=== PATIENT | female | born 1965 | race Caucasian/White ===

== ENCOUNTER 2025-05-12 00:21 | Day surgery (SDC) | payer OTHER, SELFPAY ==
[2025-04-22 13:12] VITALS: BMI 38.5
--- OUTSIDE RECORDS SUMMARY | 2025-05-12 00:26 | XMS_ITS | Clinical Summary ---
Author Organization [facility] Ref[facility] Address [address] [place] [address] Care Team Providers Care Greens Tier Name Role Phone Chio uBtler DO Primary Care Provider [phone] Source Comments [facility],non-owned Affiliates and Associated Physician Practices is amultiple site organization consisting of ambulatory clinics and hospital sitesin [place], [place], [place] and [place]. This disclosure is being madepursuant to the Care Everywhere program and may not contain all information available regarding this patient. Last updated 18.[facility] Allergies Active Allergy Reactions Criticality Noted Date Comments Codeine Other,Shortness of Breath High 09/06/2012 Did not feel well Hydrocodone-Acetamin ophen Shortness of Breath High 06/25/2012 panicky Medications * Be aware that medications may not be up to date on this document. Alwaysverify current medications with the patient. difluprednate (DUREZOL) 0.05 % ophthalmic suspension Instill 1 drop into both eyes DAILY. 3 bottles 4 7 Active Additional Information Patient not taking.Reported on 10/26/2018 telmisartan-hyd roCHLOROthiazid e (MICARDIS HCT) 80-25 MG 6 Active BuPROPion HCl (WELLBUTRIN SR PO) Active omeprazole (PRILOSEC) 40 MG capsule Take 1 capsule by mouth once daily 0 Active Multiple Vitamin (MULTIVITAMIN ADULT PO) Take 1 tablet by mouth once daily Active dicyclomine (BENTYL) 10 MG capsule TAKE ONE CAPSULE BY MOUTH FOUR TIMES DAILY BEFORE MEALS AND EVERY NIGHT 1 Active oxyCODONE-aceta minophen (PERCOCET) 5-325 MG tablet TK 1-2 TS PO Q 6 H PRN 0 Active buPROPion XL 24hr (WELLBUTRIN-XL) 150 MG tablet 0 Active MICARDIS HCT 40-12.5 MG tablet 0 Active oxyCODONE-aceta minophen (ROXICET) 5-325 MG/5ML solution 0 Active BUPROPION HCL PO 0 Active cyclobenzaprine (FLEXERIL) 10 MG tablet 9 Active dicyclomine (BENTYL) 10 MG capsule 1 Active HYDROcodone-dennis taminophen (NORCO) 5-325 mg 5-325 mg half tablet 9 Active ibuprofen (MOTRIN) 600 MG tablet 9 Active omeprazole (PRILOSEC) 40 MG capsule 0 Active Active Problems Problem Noted Date Diagnosed Date Ventral hernia 02/12/2020 GERD (gastroesophageal reflux disease) 8 Chest pain 03/27/2018 Nuclear sclerosis, left 11/08/2017 Posterior subcapsular polar senile cataract of b oth eyes 07/03/2017 Borderline hyperglycemia 01/27/2017 Obesity 01/27/2017 Retinal telangiectasis 02/04/2016 Adjustment disorder with anxiety 02/04/2016 Puckering of both maculas 04/09/2015 Leiomyoma of uterus 04/12/2013 Vitamin D deficiency 12/05/2012 Spinal stenosis 11/26/2012 Hypertension 06/25/2012 Simple goiter 06/25/2012 Immunizations Immunization Administration Dates Next Due Binary [place]ountain primary monoval ent 12+ yr 0.3mL Purple cap 06/19/2020,05/29/2020 HEP B VACCINE, ADULT 3 DOSE 09/08/2005, 5,01/28/2005 INFLUENZA VACCINE 02/11/2020, 8,03/12/2017,2014 INFLUENZA VACCINE, QUADR. (A FLURIA, FLUZONE QUADRIVALENT; 6MO+) (IIV4) 03/19/2004 INFLUENZA VACCINE, QUADR. (F LUZONE; FLULAVAL; FLUARIX; AFLURIA QUADRIVALENT; 6MO+), 0.5 ML (IIV4) 03/07/2019 Td (Adult), 2 Lf Tetanus Tox oid, Adsorbed, Pf 02/28/2005 Family History Medical History Relation Name Comments Glaucoma Maternal Uncle Cataract Mother CVA Paternal Grandmother Relation Name Status Comments Maternal Uncle Mother Paternal Grandmother Social History Tobacco Use Types Packs/Day Years Used Date Smoking Tobacco: Never Smokeless Tobacco: Former Alcohol Use Standard Drinks/Week Comments Yes 0 (1 standard drink = 0.6 oz pur e alcohol) occasionally Comments No Sex and Gender Information Value Date Recorded Sex Assigned at Not on file 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 Gender Identity Not on file Sexual Orientation Not on file Last Filed Vital Signs Vital Sign Reading Time Taken Comments Blood Pressure 103/48 11/08/2017 11:25 AM CDT Pulse 66 11/08/2017 11:10 AM CDT Temperature 36.6 C (97.9 F) 11/08/2017 11:25 AM CDT Respiratory Rate 15 11/08/2017 11:10 AM CDT Oxygen Saturation 93% 11/08/2017 11:10 AM CDT Inhaled Oxygen Concentration - - Weight 81.3 kg (179 lb 2 oz) 11/08/2017 9:48 AM CDT Height 144.8 cm (4' 9) 11/08/2017 9:48 AM CDT Body Mass Index 38.76 11/08/2017 9:48 AM CDT Plan of Treatment Health Maintenance Due Date Last Done Comments COLOGUARD (AGES 45-75) - COLON CA SCREENING 1965 COLON MONITORING 1965 COLONOSCOPY - COLON CA SCREENING 1963 CT COLONOGRAPHY - COLON CA SCREENING 1965 Colorectal Cancer Screening 1965 FIT - COLON CA SCREENING 1965 FLEX SIG - COLON CA SCREENING 1965 LIPID TESTING 1965 HIV SCREENING 1978 PAP with HPV 1993 DTAP/TDAP/TD VACCINES (1 - Tdap) 03/01/2005 02/28/2005 PNEUMOCOCCAL VACCINE 50+ (1 of 1 - PCV) 2013 ZOSTER VACCINE (1 of 2) 2013 DEPRESSION SCREENING 06/12/2024 Cervical Cancer Screening 11/02/2024 PAP SMEAR 11/02/2024 11/02/2021 COVID-19 VACCINE ( season) 2025 04/15/2021, 06/19/2020, 05/29/2020 INFLUENZA VACCINE (#1) 2025 , 04/13/2023, 03/31/2021, Additional history exists MAMMOGRAM 07/22/2026 07/22/2024, 01/2025, 06/19/2024, Additional history exists Respiratory Syncytial Virus (RSV) Vaccine Pt: or over 60 yrs (1 - 1-dose 75+ series) 2038 HEPATITIS B VACCINE Completed 09/08/2005, 02/28/2005, 01/28/2005 HEPATITIS C SCREENING Completed 04/21/2021 HIB VACCINE Aged Out No longer eligi ble based on patient's age to complete this topic HPV VACCINE Aged Out No longer eligi ble based on patient's age to complete this topic MENINGOCOCCAL (Group B) VACCINE SHARED DECISION-MAKING Aged Out No longer eligible based on patient's age to complete this topic MENINGOCOCCAL GROUPS A/C/Y/W VACCINE Aged Out No longer eligible based on patient's age to complete this topic Medical Devices Implanted Type Area Wheat Cleaner Device Identifier Shelf Expiration Date Model / Serial / Lot Lens Iol +26 Juan Hpt C Bcnvx Tecnis - [id number] Implanted:Qty: 1 on 11/08/2017 by Ysabel Andre MD at [facility] Left: Eye [employer] 07/06/2019 [id number] / [id number] / Insurance Advance Directives * Full Code (Latest Code Status on File) Date Activated Date Inactivated Comments 11/01/2017 8:25 AM 11/08/2017 12:47 PM Care Teams Greens Tier Relationship Specialty Start Date End Date Chio Butler DO [address] [place] [address] PCP - General 02/23/16
--- OUTSIDE RECORDS SUMMARY | 2025-05-12 00:26 | XMS_ITS | Encounter Summary ---
Author Organization [facility] Address [address] [place] [address] Care Team Providers Care Commercial Development Manager Name Role Phone Chio Butler DO Primary Care Provider [phone] Reason for Visit * Reason Onset Date Comments Question 01/21/2022 Encounter Details Date Type Department Care Team (Late st Contact Info) Description 01/21/2022 Telephone [facility] [address] [place] [address] Iveth Rae MD [address] [address] Question Social History Tobacco Use Types Packs/Day Years Used Date Smoking Tobacco: Never Smokeless Tobacco: Former Alcohol Use Standard Drinks/Week Comments Yes 0 (1 standard drink = 0.6 oz pur e alcohol) occasionally Comments No Sex and Gender Information Value Date Recorded Sex Assigned at Not on file 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 Wilmer Evans's field operations farm manager in regards to something that was orderedfor her. documented in this encounter Plan of Treatment Not on file documented as of this encounter Visit Diagnoses Not on filedocumented in this encounter Care Teams Commercial Development Manager Relationship Specialty Start Date End Date Chio Butler DO [address] [address] PCP - General 02/23/16 documented as of this encounter
[2025-05-12 07:22] VITALS: BP 140/63; PULSE 73; RESP 18; TEMP 36.1; O2SAT 99
[2025-05-12] MEDS: LACTATED RINGERS 1,000 ML 150 ML IV CONT (07:31)
--- NOTE | 2025-05-12 07:35 | WPDANESEPPF ---
Anes - Initial Pre Proc Eval Procedure: Operation Date: 05/12/25 08:30 Proposed Procedures p Screening Colonoscopy - Elia Vicente DO Date/Time: 05/12/25 07:35 Surgeon: Elia Vicente DO Pre Op Diagnosis: screening for malignant neoplasm of colon Patient Data Age: 60 Gender: F Height: 1.45 m Weight: 80.6 kg Last Vital Signs Temp 36.1 C L 05/12/25 07:22 Pulse 73 05/12/25 07:22 Resp 18 05/12/25 07:22 BP 140/63 05/12/25 07:22 Pulse Ox 99 05/12/25 07:22 O2 Del Method Room Air 05/12/25 07:22 Allergies Allergy/AdvReac Type Severity Reaction Status Date / Time codeine Allergy Unknown Cough Verified 05/12/25 07:19 Home Medications ?Medication ?Instructions ?Recorded ?Confirmed ?Type esomeprazole magnesium 40 mg 40 mg PO Q24H 04/22/25 05/12/25 History capsule,delayed release ferrous sulfate 325 mg (65 mg 325 mg PO DAILY 04/22/25 05/12/25 History iron) tablet (Feosol) telmisartan 40 1 tablet PO DAILY 04/22/25 05/12/25 History mg-hydrochlorothiazide 12.5 mg tablet (Micardis HCT) Patient hx anesthesia problems: none Family hx anesthesia problems: none Results Review: All pre-operative results and documents have been reviewed as part of the pre-operative evaluation. [facility] Past Medical History Medical History (Updated 05/12/25 @ 07:36 by Trev Hawkins DO) ANA (obstructive sleep apnea) Hypertension Hyperlipidemia Social History Social History Smoking packs per day: 0.5 Smoking cigarettes per day: 10.0 Years smoked: 15 Smoking pack-years: 7.50 Smoking status: Former smoker Tobacco type: cigarettes Alcohol intake: never Substance use: never Substance use type: does not use Living arrangements: alone Spiritual care concerns: No Anes - Eval Final PreProcedure Day of Procedure 05/12/25 07:35 Patient weight: obese Heart: regular rate and rhythm Lungs: clear to auscultation Airway: Mallampati scale class II Neurological: alert and oriented Last oral intake: >/= 8 hours ASA classification: III Emergent: no Anesthetic plan: proceed Anesthesia type and monitoring: general GIVS and standard monitoring Results Review: All pre-operative results and documents have been reviewed as part of the pre-operative evaluation. Informed Consent: The patient's anesthetic plan and its attendant risks and benefits were discussed with the patient/family/POA. Questions were solicited and answers provided to the satisfaction of the patient/family/POA.
--- NOTE | 2025-05-12 08:19 | PM.IMHP ---
H&P: HPI History of Present Illness Date/Time: 05/12/25 08:19 Chief Complaint: screening for colorectal cancer Narrative: this is a 60-year-old woman who presents for colonoscopy. Her last colonoscopy was 10 years ago and was normal. She denies family history of colon cancer. She denies hematochezia or melena. Review of Systems Review of Systems: All systems reviewed & are unremarkable except as noted in HPI and below Constitutional: Constitutional: Denies chills, Denies fever(s), Denies headache(s) and Denies weight loss Eyes: Eyes: Denies change in vision ENT: Denies dizziness, Denies headache(s), Denies neck mass and Denies throat swelling Cardiovascular: Cardiovascular: Denies chest pain, Denies lightheadedness and Denies dyspnea Respiratory: Respiratory: Denies cough, Denies dyspnea and Denies wheezing Gastrointestinal: Gastrointestinal: Denies abdominal pain, Denies change in bowel habits, Denies nausea and Denies vomiting Genitourinary: Genitourinary: Denies hematuria and Denies dysuria Musculoskeletal: Musculoskeletal: Reports as per HPI Integumentary/Breasts: Skin/Breast: Reports as per HPI Neurologic: Denies dizziness and Denies headache(s) Allergic/Immunologic: Allergic/Immunologic: Denies throat swelling and Denies wheezing [facility] Past Medical History Medical History (Updated 05/12/25 @ 08:19 by Elia Vicente DO) ANA (obstructive sleep apnea) Hypertension Hyperlipidemia Social History Social History Smoking packs per day: 0.5 Smoking cigarettes per day: 10.0 Years smoked: 15 Smoking pack-years: 7.50 Smoking status: Former smoker Tobacco type: cigarettes Alcohol intake: never Substance use: never Substance use type: does not use Living arrangements: alone Spiritual care concerns: No Meds Home Medications and Allergies Home Medications ?Medication ?Instructions ?Recorded ?Confirmed ?Type esomeprazole magnesium 40 mg 40 mg PO Q24H 04/22/25 05/12/25 History capsule,delayed release ferrous sulfate 325 mg (65 mg 325 mg PO DAILY 04/22/25 05/12/25 History iron) tablet (Feosol) telmisartan 40 1 tablet PO DAILY 04/22/25 05/12/25 History mg-hydrochlorothiazide 12.5 mg tablet (Micardis HCT) Allergies Allergy/AdvReac Type Severity Reaction Status Date / Time codeine Allergy Unknown Cough Verified 05/12/25 07:19 Vital Signs Vital Signs - 24 hr 05/12/25 07:22 Temperature 96.9 F L Pulse Rate 73 Respiratory Rate 18 Blood Pressure 140/63 Pulse Oximetry 99 Oxygen Delivery Room Air Exam Const: General: no acute distress and alert Orientation/consciousness: patient oriented x3 HENMT: Head: normocephalic and atraumatic Ears: hearing grossly normal bilaterally Face/Nose/Sinus: Normal nares present Mouth: Yes Normal oral and palatal mucosa present Eyes: Periorbital: periorbital findings normal Sclera: sclerae normal EOM: EOMs intact bilaterally Neck: Neck: normal visual inspection, no lymphadenopathy and trachea midline Chest: Chest palpation & inspection: normal inspection of the chest Resp: Effort & Inspection: normal respiratory effort Auscultation: clear to auscultation bilaterally Cardio: Jugular venous distension: no JVD Rate: regular rate Rhythm: regular rhythm Heart sounds: S1 normal heart sound present and S2 normal heart sound present Peripheral pulses: Peripheral pulses 2+ throughout GI: Inspection: normal to inspection GI Palp: Yes Soft to palpation, No Tenderness to palpation present (GI), No Guarding due to palpation present (GI) and No Rebound tenderness present Percussion: Yes normal to percussion Auscultation: normal bowel sounds : General: Yes no CVA tenderness Back/Spine/Pelvis: Back: no CVA tenderness Neuro: General: patient oriented x3, no focal motor deficits and CN's II-XI intact bilaterally Cognition (Neuro): normal cognition Speech: normal speech Motor exam (neuro): 5/5 motor strength present throughout Extrem: General: capillary refill normal and no clubbing, cyanosis or edema Assessment and Plan Assessment and plan (1) Screening for colorectal cancer: Code(s): Z12.11 - Encounter for screening for malignant neoplasm of colon; Z12.12 - Encounter for screening for malignant neoplasm of rectum Status: Acute Assessment and Plan: I have recommended colonoscopy. I have discussed the procedure, risks, benefits, and alternatives. Questions were answered. Patient is agreeable to proceed.
--- NOTE | 2025-05-12 08:45 | S_PTH ---
PATIENT: Alison Ashby I LOC: [facility] U#:[id number] AGE/SX: 60/F ROOM: RE05/12/[address]: Elia Vicente DO : 1965 BED: DIS: 05/12/2025 SPEC #: [id number] RECD: 05/12/25 10:42 STATUS: MINNIE REQ #: [id number] NEO: 05/12/25 08:[address]: Elia Vicente DEPT: [facility] Surgical RECD BY: Charisse Soriano ENTERED: 05/12/25 10:42 SP TYPE: Surgical OTHR DR: Chio Butler, Tissues: A - Colon Polypectomy Procedures: Hematoxylin and Eosin Stain Gross and Microscopic Level 4
[2025-05-12 08:48] VITALS: BP 112/70; PULSE 71; RESP 20; O2SAT 99
[2025-05-12 08:58] VITALS: BP 117/71; PULSE 64; RESP 20; O2SAT 99
[2025-05-12 09:08] VITALS: BP 131/76; PULSE 72; RESP 20; O2SAT 97
== END 2025-05-12 09:19 | disposition home or self-care (01) ==
PROVIDERS: PCP Family Medicine; Visit Provider Surgery
PROC: 0DJD8ZZ Inspection of Lower Intestinal Tract, Via Natural or Artificial Opening Endoscopic (ICD-10-PCS; CPT 45378; principal; 2025-05-12 08:30)
DX: Z12.11 Encounter for screening for malignant neoplasm of colon (principal); K63.5 Polyp of colon; K57.30 Diverticulosis of large intestine without perforation or abscess without bleeding; Z87.891 Personal history of nicotine dependence; E66.9 Obesity, unspecified; Z68.38 Body mass index [BMI] 38.0-38.9, adult
CPT/HCPCS: 45380; 88305; J2003; J2704; J7120